=== PATIENT | male | born 1975 | race African-American/Black ===

== ENCOUNTER → 2016-12-31 | Outpatient (CLI) | payer OTHER ==
--- NOTE | 2016-12-31 14:20 | RADIOLOGY REPORT PS360 ---
HIP LT 2-3V W/PELVIS IF PERFOR HISTORY: LT HIP PAIN ORDERING PHYSICIAN: Kacy BARTON PATIENT AGE: 41 years COMPARISON: None FINDINGS: No fracture or dislocation is evident. No significant degenerative change. No lytic or blastic change. Unremarkable soft tissues IMPRESSION: Negative hip
== END ==
LOC: RAD 12:22
DX: M25.552 Pain in left hip (principal)

== ENCOUNTER → 2017-01-18 | Outpatient (CLI) | payer OTHER ==
--- NOTE | 2017-01-19 05:44 | RADIOLOGY REPORT PS360 ---
MRI-LOW EXT ANY JOINT W/O-LT HISTORY: Left hip pain with decreased range of motion DECREASED RANGE OF MOTION OF HIP, LEFT HIP PAIN ORDERING PHYSICIAN: Kacy BARTON PATIENT AGE: 41 years COMPARISON: Radiographic 12/31/2016 TECHNIQUE: Standard multiplanar multiecho sequences are performed without contrast. FINDINGS: No fracture or dislocation is evident. No hip joint effusion. No evidence of avascular necrosis of the hips. No abnormal bone marrow signal intensity apparent. Increased T2 signal present within the upper aspect of the rectus femoris muscle on the left. Both the direct head and indirect head of the rectus femoris tendon appears torn. The tendon is foreshortened and is avulsed from the anterior inferior iliac spine and the lateral margin of the acetabulum. No obvious bony fragments are evident. No other significant anomalies are evident. IMPRESSION: Tear of both the direct head and indirect head of the rectus femoris tendon with foreshortening of the muscle and tendon proximally and edema in the proximal aspect of the rectus femoris muscle. No obvious bony fragments apparent. Evaluation for associated avulsion fracture may be better evaluated with CT if clinically warranted.
== END ==
LOC: RAD 15:07
DX: M25.552 Pain in left hip (principal); M25.652 Stiffness of left hip, not elsewhere classified